=== PATIENT | female | born 1985 | race Native Hawaiian/Other Pacific Islander ===

== ENCOUNTER 2017-03-09 22:41 | Emergency (ER) | payer MEDICAID ==
[2017-03-09 22:41] VITALS: BMI 30.9
[2017-03-09 22:46] VITALS: BP 132/92; PULSE 74; RESP 16; TEMP 97.9; O2SAT 98
--- NOTE | 2017-03-09 23:14 | C.PDOC ---
History Of Present Illness 31 year old female presents to ED with complaints of pain to her rib area under left breast for 5 days. She states pain is intermittent and started when she picked up her child. Pain is worse with movement or deep inspiration. She is and denies any fever or breast pain. Time Seen by Provider: 03/09/17 22:48 Chief Complaint (Nursing): Rib Injury History Per: Patient History/Exam Limitations: no limitations Onset/Duration Of Symptoms: Days Past Medical History Reviewed: Historical Data, Nursing Documentation, Vital Signs Vital Signs: Last Vital Signs Temp 97.9 F 03/09/17 22:44 Pulse 74 03/09/17 22:44 Resp 16 03/09/17 22:44 BP 132/92 H 03/09/17 22:44 Pulse Ox 98 03/09/17 22:44 - Medical History PMH: No Chronic Diseases - [facility] Procedures APPLICATION OF SPLINT (02/28/06) Family History: States: Unknown Family Hx - Social History Hx Tobacco Use: No Hx Alcohol Use: No Hx Substance Use: No - Immunization History Hx Tetanus Toxoid Vaccination: Yes Hx Influenza Vaccination: Yes Hx Pneumococcal Vaccination: Yes Review Of Systems Constitutional: Negative for: Fever Eyes: Negative for: Vision Change Cardiovascular: Negative for: Palpitations Respiratory: Negative for: Shortness of Breath Gastrointestinal: Negative for: Vomiting, Abdominal Pain, Diarrhea Genitourinary: Negative for: Dysuria Musculoskeletal: Negative for: Shoulder Pain Skin: Negative for: Rash Neurological: Negative for: Weakness, Numbness, Headache Physical Exam - Physical Exam Appears: Non-toxic, No Acute Distress Skin: Warm, Dry, No Rash, No Ecchymosis Head: Atraumatic, Normacephalic Eye(s): bilateral: Normal Inspection, EOMI Nose: Normal Oral Mucosa: Moist Neck: Normal ROM Chest: Symmetrical, Tenderness (left anterior chest wall tender right below breast), No Ecchymosis, No Subcutaneous Emphysema Cardiovascular: Rhythm Regular (RRR) Respiratory: Normal Breath Sounds, No Accessory Muscle Use, No Rales, No Rhonchi , No Wheezing Gastrointestinal/Abdominal: Normal Exam, Soft, No Tenderness Back: Normal Inspection, No Vertebral Tenderness, No Paraspinal Tenderness Extremity: Bilateral: Atraumatic, Normal Color And Temperature, Normal ROM Pulses: Left Radial: Normal Neurological/Psych: Oriented x3, Normal Speech Gait: Steady ED Course And Treatment O2 Sat by Pulse Oximetry: 98 Medical Decision Making Medical Decision Makin31 year old female with left rib pain, area is reproducibly tender and pain worsened with movement. XRay ordered showing no acute disease. Treated with ibuprofen and on re-eval pain is mildly improving. Patient advised symptoms likely muscular related and to take analgesics as needed. May follow up with PCP in few days or return to hospital for any worsening symptoms Disposition Counseled Patient/Family Regarding: Diagnosis, Need For Followup, Rx Given - Disposition Disposition: HOME/ ROUTINE Disposition Time: 23:21 Condition: STABLE Additional Instructions: Your xray was normal. Please take ibuprofen as needed for pain. Follow up with your doctor in few days for further care. Return to the emergency department at any time if symptoms persist or worsen. Prescriptions: Ibuprofen [Motrin] 600 mg PO Q8 #30 tab Instructions: Costochondritis (ED) - POA Present On Arrival: None - Clinical Impression Clinical Impression: Costochondral chest pain
--- NOTE | 2017-03-10 09:05 | RAD ---
HISTORY: pain left breast COMPARISON: No prior. TECHNIQUE: Chest PA and lateral FINDINGS: LUNGS: No active pulmonary disease. PLEURA: No significant pleural effusion identified. No pneumothorax apparent. CARDIOVASCULAR: Normal. OSSEOUS STRUCTURES: No significant abnormalities. VISUALIZED UPPER ABDOMEN: Normal. OTHER FINDINGS: None. IMPRESSION: No active disease.
== END 2017-03-09 23:36 | disposition home or self-care (01) ==
LOC: C.ER 22:41
DX: R07.89 Other chest pain (principal)

== ENCOUNTER 2018-02-08 14:52 | Emergency (ER) | payer MEDICAID ==
[2018-02-08 14:52] VITALS: BMI 30.9
--- NOTE | 2018-02-08 15:17 | C.PDOC ---
History Of Present Illness 32 y/o female, , 16 weeks , LMP in "September", and history of constipation, presents to ED for evaluation of lower abdominal pain (suprapubic ) since 6:00 this morning. Pt is unable to describe the quality of pain. Denies taking any pain medications at home. Pt states she noticed streaks of blood in her stool today. She admits to nausea but denies vomiting, or constipation recently. Denies fall, trauma, vaginal bleeding, vaginal discharge, dysuria, hematuria, back pain, fever, chills, or any other associated symptoms at this time. Notes her OBGYN is in [place]. Time Seen by Provider: 02/08/18 15:14 Chief Complaint (Nursing): Abdominal Pain History Per: Patient History/Exam Limitations: no limitations Onset/Duration Of Symptoms: Hrs Current Symptoms Are (Timing): Still Present Location Of Pain/Discomfort: Suprapubic Radiation Of Pain To:: None Quality Of Discomfort: "Pain" Associated Symptoms: Nausea. denies: Vomiting, Loss Of Appetite, Back Pain, Chest Pain, Constipation, Urinary Symptoms Exacerbating Factors: None Alleviating Factors: None Recent travel outside of the [place]: No Additional History Per: Patient Abnormal Vaginal Bleeding: No Last Menstral Period: "In September" : 5 Para: 4 Past Medical History Reviewed: Historical Data, Nursing Documentation, Vital Signs Vital Signs: Last Vital Signs Temp 98.8 F 02/08/18 19:32 Pulse 71 02/08/18 19:32 Resp 18 02/08/18 19:32 BP 109/62 02/08/18 19:32 Pulse Ox 98 02/08/18 19:32 - [facility] Procedures APPLICATION OF SPLINT (02/28/06) Family History: States: Unknown Family Hx - Social History Hx Tobacco Use: No Hx Alcohol Use: No Hx Substance Use: No - Immunization History Hx Tetanus Toxoid Vaccination: Yes Hx Influenza Vaccination: No Hx Pneumococcal Vaccination: No Review Of Systems Except As Marked, All Systems Reviewed And Found Negative. Constitutional: Negative for: Fever, Chills Cardiovascular: Negative for: Chest Pain Respiratory: Negative for: Shortness of Breath Gastrointestinal: Positive for: Nausea, Abdominal Pain. Negative for: Vomiting , Diarrhea, Constipation Genitourinary: Negative for: Dysuria, Frequency, Hematuria, Vaginal Discharge, Vaginal Bleeding, Rash Musculoskeletal: Negative for: Back Pain Neurological: Negative for: Headache, Dizziness Physical Exam - Physical Exam Appears: Non-toxic, No Acute Distress Skin: Normal Color, Warm, Dry Head: Atraumatic, Normacephalic Eye(s): bilateral: Normal Inspection Oral Mucosa: Moist Neck: Normal ROM, Supple Chest: Symmetrical Cardiovascular: Rhythm Regular, No Murmur Respiratory: Normal Breath Sounds, No Rales, No Rhonchi, No Wheezing Gastrointestinal/Abdominal: Soft, Tenderness (suprapubic), No Guarding, No Rebound Back: No CVA Tenderness Extremity: Normal ROM, No Deformity Neurological/Psych: Oriented x3, Normal Speech ED Course And Treatment - Laboratory Results Result Diagrams: 02/08/18 16:08 02/08/18 16:08 O2 Sat by Pulse Oximetry: 99 (RA) Pulse Ox Interpretation: Normal Medical Decision Making Medical Decision Makin yr old female p/w abdominal pain, suprapubic. No vaginal d/c. Only suprapubic tenderness. No vaginal d/c or rashes. No bleeding. No trauma. Plan: Blood work Urinalysis Transvaginal ultrasound 1651 pt requests female for rectal appreciate consult w/ Mer GRESHAM- rectal exam done- external hemrrhoids, none thrombosed. no maroon or bright red stool. no massess. 1823 tolerating clears well/ labs resulted: unremarkable pending urine pending TVUS results 1899 Urine unremarkable pending TVUS 1950 TVUS unremarkable pain improved no RLQ pain, no periotneal signs, no rebound or guarding clear for d/c home Disposition - Disposition Disposition Time: 19:52 Condition: GOOD Forms: [facility] ([place]) - Clinical Impression Clinical Impression: Abdominal pain during - Scribe Statement The provider has reviewed the documentation as recorded by the Scribe KP All medical record entries made by the Scribe were at my direction and personally dictated by me. I have reviewed the chart and agree that the record accurately reflects my personal performance of the history, physical exam, medical decision making, and the department course for this patient. I have also personally directed, reviewed, and agree with the discharge instructions and disposition.
[2018-02-08 16:14] LABS: BASO % 0.1 % (0.0-2.0); EOS # 0.2 K/uL (0.0-0.7); EOS % 2.1 % (0.0-4.0); HEMOGLOBIN 13.8 g/dL (11.0-16.0); LYMPH # 1.5 K/uL (1.0-4.3); LYMPH % 15.9 % (20.0-40.0); MEAN CELL VOLUME 82.6 fL (81.0-99.0); MEAN CORPUSCULAR HEMOGLOBIN 28.9 pg (27.0-31.0); MEAN CORPUSCULAR HGB CONC 34.9 g/dL (33.0-37.0); MEAN PLATELET VOLUME 9.5 fL (7.2-11.7); MONO # 0.6 K/uL (0.0-0.8); MONO % 6.1 % (0.0-10.0); NEUT # 7.3 K/uL (1.8-7.0); NEUT % 75.8 % (50.0-75.0); NRBC % 0.1 % (0.0-2.0); RBC 4.77 Mil/uL (3.80-5.20); RED CELL DISTRIBUTION WIDTH 14.7 % (11.5-14.5); WHITE BLOOD COUNT 9.7 K/uL (4.8-10.8)
[2018-02-08 16:28] LABS: ALB/GLOB RATIO 1.2 (1.0-2.1); ALBUMIN 3.7 g/dL (3.5-5.0); ALT/SGPT 23 U/L (9-52); AST/SGOT 19 U/L (14-36); BLOOD UREA NITROGEN 9 mg/dL (7-17); CALCIUM 9.1 mg/dl (8.6-10.4); GFR NON-AFRICAN AMERICAN > 60; LIPASE 126 U/L (23-300)
[2018-02-08 18:35] VITALS: RESP 18
[2018-02-08 18:49] LABS: SQUAMOUS EPITHIAL < 1 /hpf (0-5); URINE BILIRUBIN NEGATIVE (NEGATIVE); URINE BLOOD NEGATIVE (NEGATIVE); URINE CLARITY Clear (Clear); URINE COLOR Straw (YELLOW); URINE GLUCOSE (UA) NORMAL (Normal); URINE LEUKOCYTE ESTERASE NEG Leu/uL (Negative); URINE PROTEIN NEGATIVE (NEGATIVE); URINE UROBILINOGEN NORMAL mg/dL (0.2-1.0)
[2018-02-08 19:34] VITALS: BP 109/62; PULSE 71; TEMP 98.8
[2018-02-08 19:54] VITALS: O2SAT 99
--- NOTE | 2018-02-09 09:31 | US ---
Date of service: 02/08/2018 PROCEDURE: Limited obstetrical ultrasound HISTORY: lower abd pain COMPARISON: None available. TECHNIQUE: Standard protocol for this study/examination. FINDINGS: Variable presentation. Fundal/posterior placenta. No evidence of abruption or previa Gestational age derived from LMP 16 weeks 5 days. CELESTINO 07/21/2018. Gestational age derived from the following biometric parameters 17 weeks. CELESTINO 07/19/2018 Biparietal diameter 3.7 cm Head circumference 13.31 cm Abdominal circumference 11.10 cm Femur length 2.20 cm Estimated weight 169.2 g Calculated cardiac rate 143 beats per min. Closed cervix measuring 0.47 cm IMPRESSION: 17 weeks live intrauterine gestation. Gestational concordance documented. Concordant results (preliminary interpretation) provided by [facility]. Procedure Completed: 18:06 Preliminary ([facility]) Report: Dictated and Authenticated: 19:26 Final Interpretation: 09:29
== END 2018-02-08 20:19 | disposition home or self-care (01) ==
LOC: C.ER 14:52
DX: O26.892 Other specified pregnancy related conditions, second trimester (principal); R10.30 Lower abdominal pain, unspecified; Z3A.17 17 weeks gestation of pregnancy
CPT/HCPCS: 76815; 80053; 81001; 83690; 83735; 84702; 85025; 86850; 86900; 99285; G0328